=== PATIENT | male | born 1945 | race Caucasian/White ===

== ENCOUNTER 2016-08-24 10:54 | Observation (INO) | payer OTHER, MEDICARE ==
[2016-08-24] MEDS ORDERED: DIAZEPAM 5 MG TAB PO ONE (11:02)
[2016-08-24] MEDS ORDERED: NS 1,000 ML IV ONE (11:02)
[2016-08-24] MEDS ORDERED: BACITRACIN IRRIGATION/NS 50,000 UNITS/1,000 ML BTL IRR ONE (11:02)
[2016-08-24] MEDS ORDERED: diphenhydrAMINE 25 MG CAP PO ONE (11:02)
[2016-08-24] MEDS ORDERED: ceFAZolin 2 GM/DEXTROSE 100 ML IV ONE (11:02)
[2016-08-24] MEDS ORDERED: LIDOCAINE 1% 30 ML SDV ONE (11:19)
[2016-08-24] MEDS ORDERED: fentaNYL 100 MCG/2 ML INJ ONE ×2 (11:20→12:28)
[2016-08-24] MEDS ORDERED: IOPAMIDOL (ISOVUE-300) 50 ML VIAL IV ONE (11:20)
[2016-08-24] MEDS ORDERED: BUPIVACAINE 0.5% 30 ML SDV ONE (11:20)
[2016-08-24] MEDS ORDERED: MIDAZOLAM 2 MG/2 ML VIAL ONE ×2 (11:20→12:28)
[2016-08-24 11:34] LABS: % IMMATURE GRANULYOCYTES 0.4 % (0.0-1.1); ABSOLUTE IMMATURE GRANULOCYTES 0.03 10^3/uL (0.00-0.10); ADD DIFF? NO; ADD MORPH? NO; ADD SCAN? NO; ATYPICAL LYMPHOCYTE FLAG 20 (0-99); FRAGMENT RBC FLAG 0 (0-99); HEMATOCRIT 43.4 % (40.0-51.0); HEMOGLOBIN 14.4 g/dL (13.7-17.5); LEFT SHIFT FLG 0 (0-99); LIPEMIA HEMOLYSIS FLAG 80 (0-99); MEAN CELL HEMOGLOBIN CONCENTR. 33.2 g/dL (32.4-36.7); MEAN CELL VOLUME 87.5 fL (81.5-99.8); MEAN PLATELET VOLUME 11.3 fL (8.7-11.7); PLATELET CLUMPS FLAG 0 (0-99); PLATELET COUNT 194 10^3/uL (150-400); RED BLOOD CELL COUNT 4.96 10^6/uL (4.40-6.38); RED CELL DISTRIBUTION WIDTH 13.2 % (11.5-15.2)
[2016-08-24] MEDS ORDERED: EPINEPHrine 1 MG/10 ML SYR IVP ONE (11:36)
[2016-08-24] MEDS ORDERED: methylPREDNISolone SOD SUCC 125 MG/2 ML VIAL ONE (11:36)
[2016-08-24] MEDS ORDERED: FAMOTIDINE 20 MG/NACL/50 ML BAG IV ONE (11:37)
[2016-08-24 11:47] LABS: INR 1.1 (0.83-1.16); PROTIME(PATIENT) 14.1 SEC (12.0-15.0)
[2016-08-24 11:53] LABS: ANION GAP 12 mEq/L (8-16); CALCIUM 9.3 mg/dL (8.5-10.4); CARBON DIOXIDE 23 mEq/l (22-31); CHLORIDE 108 mEq/L (97-110); CREATININE 1.1 mg/dL (0.7-1.3); GLOMERULAR FILTRATION RATE > 60; GLUCOSE 96 mg/dL (70-100); POTASSIUM 4.1 mEq/L (3.5-5.2); SODIUM 143 mEq/L (134-144)
--- NOTE | 2016-08-24 16:47 | CPEKG ---
Heart Rate: 87 RR Interval: 690 P-R Interval: 184 QRSD Interval: 110 QT Interval: 384 QTC Interval: 462 P Adams: 232 QRS Adams: 122 T Wave Adams: 17 EKG Severity - ABNORMAL ECG - EKG Impression: PACED ATRIAL RHYTHM EKG Impression: LEFT POSTERIOR FASCICULAR BLOCK Electronically Signed By: James Herrmann 24-Aug-2016 20:15:31
[2016-08-24] MEDS ORDERED: NON-FORMULARY NEW DRUG (Doxycycline Monohydrate [Oracea] 40 MG) PO PRN (20:16)
[2016-08-24] MEDS ORDERED: NON-FORMULARY NEW DRUG (Oxycodone Hcl/Acetaminophen [Percocet 7.5-325 Mg Tablet] 1 EACH) PO PRN (20:16)
[2016-08-24] MEDS ORDERED: OXYCODONE/APAP 5/325 TAB PO PRN (20:21)
[2016-08-24] MEDS ORDERED: oxyCODONE IR 5 MG TAB PO PRN (20:21)
[2016-08-24] MEDS ORDERED: Doxycycline Monohydrate [Oracea] 40 MG PO PRN (20:32)
[2016-08-24] MEDS ORDERED: ATORVASTATIN CALCIUM 40 MG TAB PO SCH (21:00)
[2016-08-24] MEDS ORDERED: ASPIRIN EC 81 MG TAB PO SCH (21:00)
[2016-08-24] MEDS ORDERED: ZOLPIDEM TARTRATE 12.5 MG PO SCH (21:00)
[2016-08-24] MEDS: METOPROLOL TARTRATE 25 MG TAB PO SCH (22:16)
[2016-08-25 04:48] LABS: % IMMATURE GRANULYOCYTES 0.5 % (0.0-1.1); ABSOLUTE IMMATURE GRANULOCYTES 0.07 10^3/uL (0.00-0.10); ADD DIFF? NO; ADD MORPH? NO; ADD SCAN? NO; ATYPICAL LYMPHOCYTE FLAG 0 (0-99); FRAGMENT RBC FLAG 0 (0-99); HEMATOCRIT 40.7 % (40.0-51.0); LEFT SHIFT FLG 0 (0-99); LIPEMIA HEMOLYSIS FLAG 80 (0-99); MEAN CELL HEMOGLOBIN 28.6 pg (27.9-34.1); MEAN CELL HEMOGLOBIN CONCENTR. 31.9 g/dL (32.4-36.7); MEAN CELL VOLUME 89.5 fL (81.5-99.8); PLATELET CLUMPS FLAG 0 (0-99); PLATELET COUNT 174 10^3/uL (150-400); RED BLOOD CELL COUNT 4.55 10^6/uL (4.40-6.38); RED CELL DISTRIBUTION WIDTH 13.1 % (11.5-15.2)
[2016-08-25 05:10] LABS: ANION GAP 12 mEq/L (8-16); CALCIUM 8.8 mg/dL (8.5-10.4); CARBON DIOXIDE 23 mEq/l (22-31); CHLORIDE 108 mEq/L (97-110); CREATININE 1.1 mg/dL (0.7-1.3); GLOMERULAR FILTRATION RATE > 60; GLUCOSE 125 mg/dL (70-100); POTASSIUM 4.5 mEq/L (3.5-5.2); SODIUM 143 mEq/L (134-144)
--- NOTE | 2016-08-25 08:35 | DX ---
PA and Lateral Chest August 25, 2016 Indication: Post pacer placement pending discharge. Comparison: February 16, 2014. Findings: Mediastinal clips and prosthetic valve are unchanged. There is a new dual-lead pacer from a left subclavian approach. Lungs are clear. Heart size is normal. No evidence of pneumothorax. Impression: 1. New pacer in adequate position. 2. Mediastinal clips and mitral valve unchanged.
[2016-08-25] MEDS ORDERED: MULTIVITAMINS 1 EACH TAB PO SCH (09:00)
--- NOTE | 2016-08-25 09:09 | CPEKG ---
Heart Rate: 72 RR Interval: 833 P-R Interval: 184 QRSD Interval: 108 QTC Interval: 0 P Sarah Ann: 0 QRS Sarah Ann: 82 EKG Severity - ABNORMAL ECG - EKG Impression: ATRIAL-PACED COMPLEXES EKG Impression: LEFT ATRIAL ABNORMALITY EKG Impression: ANTERIOR INFARCT, AGE INDETERMINATE Electronically Signed By: James Herrmann 25-Aug-2016 10:18:57
[2016-08-25 10:17] VITALS: BP 102/63; PULSE 88; RESP 15; TEMP 97.7; O2SAT 93
[2016-08-25] MEDS: METOPROLOL TARTRATE 25 MG TAB PO SCH (10:18)
--- NOTE | 2016-08-25 10:32 | EPPROC ---
Electrophysiology Procedure Note: PROCEDURE PERFORMED: * Implantation of an A/V Pacemaker * * Fluoroscopy INDICATION: This is a 71 yr old with significant sinus bradycardia resulting in significant fatigue and episodes of syncope. hence it was decided to implant a dual chamber pacemaker. PROCEDURE NOTE: Patient presented to the cardiac catheterization laboratory in a fasting, post absorptive state. Cardiac orthodontic laboratory technician nurse administered moderate sedation. The left infraclavicular area was prepped and draped in the usual sterile fashion. Lidocaine plus bupivacaine was used for local anesthesia. Using a combination of blunt and sharp dissection and electrocautery, the dissection was carried down to the prepectoral fascia. All bleeding was controlled with electrocautery. Fluoroscopy was utilized during the entire procedure for venous access and placement of the leads. Using the usual technique, left cephalic vein was accessed and a glidewire was placed. Through this initially a 9F and later a 7F sheath was passed. Placement of the guidewires into the venous system was confirmed by low- pressure blood return and also by visualizing the guidewires advancing into the inferior vena cava. A purse string suture was applied around the guidewires. An active fixation ventricular lead was advanced into the right ventricular apex and screwed in place. An active fixation atrial lead was advanced into the right atrial appendage and screwed in place. The peel away sheaths were removed. Pacing thresholds, sensing parameters and lead impedances were measured. There was no diaphragmatic stimulation at maximum output. The leads were sutured to the prepectoral fascia with 3 nonabsorbable sutures each. The pocket was created and it was flushed using antibiotic solution. It was inspected for any bleeding. The leads were attached to the pacemaker securely. The pacemaker was inserted into the pocket and secured in place with a nonabsorbable suture. Fluoroscopy was performed in BUTLER and NATALIYA planes to verify right-sided placement of the leads. Also fluoroscopy of the pacemaker pocket was performed. The pacemaker pocket was closed in 3 layers with absorbable vicryl sutures. Steristrips were placed. Appropriate dressing was applied. The patient left the cardiac catheterization laboratory in stable condition. 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
--- NOTE | 2016-08-25 17:53 | GDS ---
[f rep st] DISCHARGE SUMMARY This is a 71-year-old male with a past history of coronary artery disease status post CABG, status po st MVR, back surgery, neuropathy and related changes, who had presented to the clinic with significan t amount of fatigue, lightheadedness, and 2 episodes of syncope over the past 6 months. Heart rates were noted to be in the high 30s and low 40s. In view of this, it was decided to implant a pacemaker . PAST MEDICAL HISTORY: Coronary artery disease status post CABG significant MR status post surgery, s yncope, neuropathy, and back pain. Other past medical history detailed in the chart. PAST SURGERY HISTORY: CABG, hip surgery, and valve replacement. MEDICATIONS: List reviewed. ALLERGIES: Cardura, contrast. SOCIAL HISTORY: Lives with his . Former smoker. PHYSICAL EXAM: VITAL SIGNS: Blood pressure of 104/68, pulse of 45, respiratory rate 16. HEENT: Pu pils equal and reacting to light, accommodating. CHEST: Good air entry bilaterally equal. No rales , rhonchi, or rub. HEART: S1, S2 regular. No S3. No murmurs. ABDOMEN: Soft, nontender. No guar ding or rigidity. Bowel sounds present. EXTREMITIES: No pedal edema. HOSPITAL ADMISSION: The patient was admitted to the hospital, and a dual-chamber pacemaker was impla nted using the cephalic route. The patient tolerated the procedure well. He stayed overnight. The next morning, chest x-ray showed good lead position. Device interrogation was performed, which showe d good numbers. No hematoma was noted. The patient was feeling well. At this point in time, the pa tient was in stable condition, and then it was decided to discharge to home. DISCHARGE MEDICATIONS: Ambien as needed, doxycycline as needed, aspirin 81 mg at night, Lipitor 80 m g q.h.s., gabapentin 1200 mg daily, metoprolol 25 mg p.o. b.i.d., oxycodone as needed, multivitamin, diazepam, buprenorphine patch. Pacemaker instructions were given. Followup appointment made with the [facility] as well as Dr. Kathia bhatia. Thank you for letting me participate in the patient's care. Feel free to call me for questions you m ay have. /[id number]/MODL
[2016-08-25] MEDS ORDERED: GABAPENTIN 300 MG CAP PO SCH (18:00)
[2016-08-26] MEDS ORDERED: Buprenorphine [Butrans 20 Mcg/Hr] 1 EACH TD SCH (12:00)
[2016-08-26] MEDS ORDERED: NON-FORMULARY NEW DRUG (Buprenorphine [Butrans 20 Mcg/Hr] 1 EACH) TD SCH (12:00)
== END 2016-08-25 11:48 | disposition home or self-care (01) ==
LOC: FCATH 10:54 → F2W 13:21
PROVIDERS: ADMIT Internal Medicine Cardiovascular Disease; ATTEND Internal Medicine Cardiovascular Disease
PROC: 02H63JZ Insertion of Pacemaker Lead into Right Atrium, Percutaneous Approach (ICD-10-PCS; principal; 2016-08-24)
PROC: 0JH606Z Insertion of Pacemaker, Dual Chamber into Chest Subcutaneous Tissue and Fascia, Open Approach (ICD-10-PCS; principal; 2016-08-24)
PROC: 02HK3JZ Insertion of Pacemaker Lead into Right Ventricle, Percutaneous Approach (ICD-10-PCS; principal; 2016-08-24)
DX: R00.1 Bradycardia, unspecified (principal); R55 Syncope and collapse; I25.10 Atherosclerotic heart disease of native coronary artery without angina pectoris; Z95.1 Presence of aortocoronary bypass graft; Z95.2 Presence of prosthetic heart valve
CPT/HCPCS: 33208; 71020; 93005; C1769; C1785; C1898; J0690; J2250; J3010; Q9967

== ENCOUNTER → 2017-01-31 | Outpatient (CLI) | payer OTHER, MEDICARE | LOC: BHFA 09:30 | PROVIDERS: ATTEND Internal Medicine Cardiovascular Disease | DX: R00.1 Bradycardia, unspecified (principal); Z95.0 Presence of cardiac pacemaker ==

== ENCOUNTER → 2017-02-01 | Outpatient (CLI) | payer OTHER, MEDICARE | LOC: FIMAGING 08:31 | PROVIDERS: ATTEND Physician Assistant | DX: M25.552 Pain in left hip (principal); M25.852 Other specified joint disorders, left hip; M76.02 Gluteal tendinitis, left hip; M76.892 Other specified enthesopathies of left lower limb, excluding foot ==

== ENCOUNTER → 2017-02-02 | Outpatient (CLI) | payer OTHER, MEDICARE ==
[~2017-02-02] MED LIST: DEPO METHYLPREDNISOLONE 40 MG/ML SDV ONE; IOPAMIDOL (ISOVUE 370) 100 ML BTL IV ONE; LIDOCAINE 1% 300 MG/30 ML SDV ONE; ROPIVACAINE HCL 150 MG/30 ML INJ ONE
== END ==
LOC: FIMAGING 13:26
PROVIDERS: ATTEND Orthopaedic Surgery
PROC: 3E0U3BZ Introduction of Anesthetic Agent into Joints, Percutaneous Approach (ICD-10-PCS; principal; 2017-02-02)
PROC: 3E0U33Z Introduction of Anti-inflammatory into Joints, Percutaneous Approach (ICD-10-PCS; principal; 2017-02-02)
DX: M25.551 Pain in right hip (principal); M25.552 Pain in left hip
CPT/HCPCS: 20610; 77002; J1030; J2795; Q9967

== ENCOUNTER 2017-03-29 05:26 | Day surgery (SDC) | payer OTHER, MEDICARE ==
[2017-03-29] MEDS ORDERED: ceFAZolin 2 GM/DEXTROSE 100 ML IV ONE (06:05)
[2017-03-29] MEDS ORDERED: LR 1,000 ML IV ONE (06:18)
--- NOTE | 2017-03-29 07:04 | PDHPUP ---
History & Physical Update H&P update statement: This history and physical update is based on an assessment of the patient which was completed after admission or registration (within 24 hours), but prior to the surgery/procedure. H&P update: H&P reviewed & patient examined, no change in patient's condition since H&P completed
[2017-03-29] MEDS ORDERED: BUPIVACAINE 0.5% 30 ML SDV ONE (07:09)
[2017-03-29] MEDS ORDERED: MIDAZOLAM 2 MG/2 ML VIAL IVP ONE (08:07)
--- NOTE | 2017-03-29 08:11 | PDANEPAE ---
ANE History of Present Illness Lap inguinal hernia repair ANE Past Medical History - Cardiovascular History Hx Hypertension: No Hx Arrhythmias: No Hx Coronary Artery / Peripheral Vascular Disease: Yes Hx CHF / Valvular Disease: Yes Cardiovascular History Comment: . CABG X . MITRAL VALVE REP. PAIN OVER R CHEST- FOR RIB PLATE REM. HIGH CHOL - Pulmonary History Hx COPD: No Hx Asthma/Reactive Airway Disease: No Hx Recent Upper Respiratory Infection: No Hx Oxygen in Use at Home: No Hx Sleep Apnea: No Pulmonary History Comment: DENIES SOB W STAIRS. PERSISTANT PNEUMOTHORAX HOSP X 1 MONTH W CABG SURG - Neurologic History Hx Cerebrovascular Accident: No Hx Seizures: No Hx Dementia: No Neurologic History Comment: NERVE PAIN- R CHEST - Endocrine History Hx Diabetes: No Hypothyroid: No Hyperthyroid: No - Renal History Hx Renal Disorders: Yes Renal History Comment: BPH - Liver History Hx Hepatic Disorders: No - Neurological & Psychiatric Hx Hx Neurological and Psychiatric Disorders: No - Cancer History Hx Cancer: No - Congenital Disorder History Hx Congenital Disorders: No - GI History GERD: mild Hx Gastrointestinal Disorders: No - Other Health History Other Health History: ROSEACIA - Chronic Pain History Chronic Pain: Yes (CHEST) - Surgical History Prior Surgeries: CABG X. MINI MITRAL VALVE REPAIR W RIB PLATE '. THORACOTOMY. STERNAL WIRES REM. R CHEST WAL SCAR EXC. R HIP REPAIR. TONSILS. FX L ARM REP ULNA AND RADIUS. R ANKLE ANE Review of Systems - Exercise capacity METS (RN): 1 METS - Pacemaker Pacemaker Type: Bi-Ventricular Pacemaker Lead Relay Tester: Biotronik Pacemaker Model: [id number] Pacemaker Mode: DDD Date Pacemaker Last Checked: february/2017 ANE Patient History - Allergies Allergies/Adverse Reactions: caffeine Allergy (Intermediate, Verified 11/15/11 14:54) Rash iodine Allergy (Intermediate, Verified 01/29/14 11:51) Flushing CITRUS JUICE Allergy (Intermediate, Uncoded 11/15/11 14:54) Rash CL&ME ISOTHIAZOLINONE Allergy (Intermediate, Uncoded 11/15/11 14:54) BLISTERS/RASH CATS Allergy (Mild, Uncoded 02/02/14 11:46) ITCHY EYES - Home Medications Home Medications: Aspirin EC [Aspirin EC 81 mg (*)] 81 mg PO HS 01/29/14 [Last Taken 03/28/17] Doxycycline Monohydrate [Oracea] 40 mg PO HS PRN 01/29/14 [Last Taken 03/28/17] Multivitamins [Multivitamin (*)] 1 each PO DAILY 01/29/14 [Last Taken 02/09/14] ZOLPIDEM TARTRATE [Ambien CR 12.5 mg] 12.5 mg PO HS 01/29/14 [Last Taken ] Atorvastatin Calcium [Lipitor 40 mg (*)] 80 mg PO HS 08/24/16 [Last Taken ] Buprenorphine [Butrans 20 mcg/hr] 1 each TD SA@12 08/24/16 [Last Taken 03/28/17] Gabapentin [Neurontin 300 MG (*)] 1,200 mg PO DAILY@18 08/24/16 [Last Taken 07/06] - NPO status NPO Since - Liquids (Date): 03/28/17 NPO Since - Liquids (Time): 10:30 NPO Since - Solids (Date): 03/28/17 NPO Since - Solids (Time): 19:00 - Smoking Hx Smoking Status: Former smoker Marijuana use: Yes - Family Anes Hx Family Anes Hx: none Family Hx Anesthesia Complications: NONE ANE Labs/Vital Signs - Vital Signs Blood Pressure: 131/73 Heart Rate: 59 Respiratory Rate: 12 O2 Sat (%): 94 Height: 182.88 cm Weight: 83.915 kg ANE Physical Exam - Airway Neck exam: decreased ROM Mallampati Score: Class 2 Mouth exam: normal dental/mouth exam - Pulmonary Pulmonary: no respiratory distress, no rales or rhonchi - Cardiovascular Cardiovascular: regular rate and rhythym, no murmur, rub, or gallop - ASA Status ASA Status: III ANE Anesthesia Plan Anesthesia Plan: general endotracheal anesthesia (Magnet for pacemaker)
[2017-03-29] MEDS ORDERED: fentaNYL 100 MCG/2 ML INJ ONE ×3 (08:16)
[2017-03-29] MEDS ORDERED: PROPOFOL 200 MG/20 ML VIAL ONE (08:16)
[2017-03-29] MEDS ORDERED: PROPOFOL/EMULSION 500 MG/50 ML BOTTLE IV ONE (08:16)
[2017-03-29] MEDS ORDERED: NALOXONE HCL 0.4 MG/ML INJ IVP PRN (09:17)
[2017-03-29] MEDS ORDERED: ONDANSETRON 4 MG/2 ML VIAL IVP PRN (09:17)
[2017-03-29] MEDS ORDERED: HYDROmorphONE/DILAUDID 1 MG/ML SYR IVP PRN (09:17)
[2017-03-29] MEDS ORDERED: fentaNYL 100 MCG/2 ML INJ IVP PRN (09:17)
[2017-03-29] MEDS ORDERED: METOCLOPRAMIDE 10 MG/2 ML VIAL IVP PRN (09:17)
[2017-03-29] MEDS ORDERED: ONDANSETRON 4 MG/2 ML VIAL ONE (09:22)
[2017-03-29] MEDS ORDERED: KETOROLAC 30 MG/1 ML SDV ONE (09:22)
[2017-03-29] MEDS ORDERED: DEXAMETHASONE 4 MG/ML VIAL ONE (09:22)
[2017-03-29] MEDS ORDERED: SUGAMMADEX SODIUM 200 MG/2 ML VIAL IVP ONE (09:22)
[2017-03-29] MEDS ORDERED: ROCURONIUM 50 MG/5 ML VIAL ONE (09:22)
[2017-03-29] MEDS ORDERED: PHENYLEPHRINE HCL 100 MCG/ML SYR ONE (09:22)
[2017-03-29 10:01] VITALS: PULSE 60
--- NOTE | 2017-03-29 10:05 | POSTOPPROG ---
Post Op Note Date of Operation: 03/29/17 Surgeon: Edmar Guerra Toxics Program Officer: Ana Lilia Azevedo Anesthesiologist: Toño Anesthesia: GET(General Endotracheal) Pre-op Diagnosis: Bilateral inguinal hernia Post-op Diagnosis: BIH, umbilical hernia Procedure: laproscopic BIH repair with mesh, umbilical hernia repair Findings: right indirect hernia, small left hernia, small umbilical hernia Inf/Abcess present in the surg proc area at time of surgery?: No Depth: Organ Space EBL: Minimal
[2017-03-29 12:35] VITALS: BP 95/56; RESP 15; TEMP 97.7; O2SAT 95
--- NOTE | 2017-03-29 13:09 | POSTANESTH ---
Post Anesthetic Evaluation Cardiovascular Status: Normal, Stable Respiratory Status: Normal, Stable Level of Consciousness/Mental Status: Can Participate in Eval Pain Control: Adequate, Prn Tx Ordered Nausea/Vomiting Control: Adequate, Prn Tx Ordered Complications Possibly Related to Anesthesia: None Noted
== END 2017-03-29 12:35 | disposition home or self-care (01) ==
LOC: FSGY 05:26
PROVIDERS: ATTEND Surgery
PROC: 0YUA4JZ Supplement Bilateral Inguinal Region with Synthetic Substitute, Percutaneous Endoscopic Approach (ICD-10-PCS; principal; 2017-03-29 08:15)
PROC: 0WQF0ZZ Repair Abdominal Wall, Open Approach (ICD-10-PCS; principal; 2017-03-29 08:15)
DX: K40.20 Bilateral inguinal hernia, without obstruction or gangrene, not specified as recurrent (principal); K42.9 Umbilical hernia without obstruction or gangrene; I25.10 Atherosclerotic heart disease of native coronary artery without angina pectoris; I25.2 Old myocardial infarction; E78.00 Pure hypercholesterolemia, unspecified; Z95.1 Presence of aortocoronary bypass graft; Z95.0 Presence of cardiac pacemaker
CPT/HCPCS: 49580; 49650; C1727; C1781; J0690; J1100; J1885; J2250; J2370; J2405; J2704; J3010

== ENCOUNTER → 2017-04-25 | Outpatient (CLI) | payer OTHER, MEDICARE | LOC: EDSTATUS 11:16 → FIMAGING 12:23 → FLAB 12:23 | PROVIDERS: ATTEND Internal Medicine Cardiovascular Disease | DX: R06.02 Shortness of breath (principal); Z95.0 Presence of cardiac pacemaker ==

== ENCOUNTER → 2017-05-24 | Outpatient (CLI) | payer OTHER, MEDICARE | LOC: FIMAGING 08:55 | DX: M51.24 Other intervertebral disc displacement, thoracic region (principal); M46.94 Unspecified inflammatory spondylopathy, thoracic region ==

== ENCOUNTER → 2017-06-19 | Outpatient (CLI) | payer OTHER, MEDICARE | LOC: FIMAGING 08:54 | PROVIDERS: ATTEND Family Medicine | DX: R26.89 Other abnormalities of gait and mobility (principal); R53.1 Weakness; I25.10 Atherosclerotic heart disease of native coronary artery without angina pectoris; Z95.0 Presence of cardiac pacemaker ==

== ENCOUNTER 2018-02-21 09:33 | Day surgery (SDC) | payer OTHER, MEDICARE ==
[2018-02-21] MEDS ORDERED: NS 500 ML IV ONE (09:34)
[2018-02-21] MEDS ORDERED: fentaNYL 100 MCG/2 ML INJ IVP ONE (09:34)
[2018-02-21] MEDS ORDERED: ATROPINE SULFATE 1 MG/10 ML SYR IVP ONE (09:34)
[2018-02-21] MEDS ORDERED: MIDAZOLAM 2 MG/2 ML VIAL IVP ONE (09:34)
[2018-02-21] MEDS ORDERED: BENZOCAINE UNIT DOSE SPRAY HURRICAINE MM ONE (09:34)
--- NOTE | 2018-02-21 09:59 | CPEKG ---
Heart Rate: 78 RR Interval: 769 QRSD Interval: 112 QT Interval: 404 QTC Interval: 461 QRS Flowood: 183 T Wave Flowood: -36 EKG Severity - ABNORMAL ECG - EKG Impression: A-FLUTTER W/ PREDOM 3:1 AV BLOCK, A-RATE 234 EKG Impression: NONSPECIFIC INTRAVENTRICULAR CONDUCTION DELAY EKG Impression: ANTERIOR INFARCT, OLD EKG Impression: ST DEPRESSION, CONSIDER ISCHEMIA, INF LEADS Electronically Signed By: Mikie Currie 28-Feb-2018 16:25:48
[2018-02-21 10:32] LABS: INR 2.26 (0.83-1.16)
[2018-02-21] MEDS ORDERED: PROPOFOL 200 MG/20 ML VIAL ONE (11:01)
[2018-02-21] MEDS ORDERED: LIDOCAINE 1% 5 ML SDV ONE (11:03)
--- NOTE | 2018-02-21 11:34 | CPEKG ---
Heart Rate: 53 RR Interval: 1132 P-R Interval: 192 QRSD Interval: 116 QT Interval: 452 QTC Interval: 425 P Brayton: 56 QRS Brayton: 141 T Wave Brayton: 2 EKG Severity - ABNORMAL ECG - EKG Impression: SINUS RHYTHM EKG Impression: LEFT POSTERIOR FASCICULAR BLOCK EKG Impression: ANTERIOR INFARCT, OLD Electronically Signed By: Mikie Currie 28-Feb-2018 16:25:15
[2018-02-21] MEDS ORDERED: NALOXONE HCL 0.4 MG/ML INJ IVP PRN (16:07)
--- NOTE | 2018-02-21 16:09 | PDANEPAE ---
ANE History of Present Illness 72 year old male with A-fib for cardioversion. ANE Past Medical History - Cardiovascular History Hx Hypertension: No Hx Arrhythmias: No Hx Coronary Artery / Peripheral Vascular Disease: Yes Hx CHF / Valvular Disease: Yes Cardiovascular History Comment: ME . CABG X . MITRAL VALVE REP. PAIN OVER R CHEST- FOR RIB PLATE REM. HIGH CHOL - Pulmonary History Hx COPD: No Hx Asthma/Reactive Airway Disease: No Hx Recent Upper Respiratory Infection: No Hx Oxygen in Use at Home: No Hx Sleep Apnea: No Pulmonary History Comment: DENIES SOB W STAIRS. PERSISTANT PNEUMOTHORAX HOSP X 1 MONTH W CABG SURG - Neurologic History Hx Cerebrovascular Accident: No Hx Seizures: No Hx Dementia: No Neurologic History Comment: NERVE PAIN- R CHEST - Endocrine History Hx Diabetes: No - Renal History Hx Renal Disorders: Yes Renal History Comment: BPH - Liver History Hx Hepatic Disorders: No - Neurological & Psychiatric Hx Hx Neurological and Psychiatric Disorders: No - Cancer History Hx Cancer: No - Congenital Disorder History Hx Congenital Disorders: No - GI History Hx Gastrointestinal Disorders: No - Other Health History Other Health History: ROSEACIA - Chronic Pain History Chronic Pain: Yes (CHEST) - Surgical History Prior Surgeries: CABG X. MINI MITRAL VALVE REPAIR W RIB PLATE . THORACOTOMY. STERNAL WIRES REM. R CHEST WAL SCAR EXC. R HIP REPAIR. TONSILS. FX L ARM REP ULNA AND RADIUS. R ANKLE ANE Review of Systems Review of systems is: negative Review of Systems: - Pacemaker Date Pacemaker Last Checked: february/2017 ANE Patient History - Allergies Allergies/Adverse Reactions: caffeine Allergy (Intermediate, Verified 11/15/11 14:54) Rash iodine Allergy (Intermediate, Verified 01/29/14 11:51) Flushing CITRUS JUICE Allergy (Intermediate, Uncoded 11/15/11 14:54) Rash CL&ME ISOTHIAZOLINONE Allergy (Intermediate, Uncoded 11/15/11 14:54) BLISTERS/RASH CATS Allergy (Mild, Uncoded 02/02/14 11:46) ITCHY EYES - Home Medications Home Medications: Doxycycline Monohydrate [Oracea] 40 mg PO HS PRN 01/29/14 [Last Taken 02/20/18 23:00] Atorvastatin Calcium [Lipitor 40 mg (*)] 80 mg PO HS 08/24/16 [Last Taken 23:00] Buprenorphine [Butrans 20 mcg/hr] 1 each TD SA@12 08/24/16 [Last Taken 02/18/18 19:00] Gabapentin [Neurontin 300 MG (*)] 1,200 mg PO DAILY@18 08/24/16 [Last Taken 07/06] Digoxin [Lanoxin 0.125 mg] 0.125 mg PO DAILY 02/21/18 [Last Taken 02/20/18 23:00 ] Escitalopram Oxalate [Lexapro 10 MG] 02/21/18 [Last Taken 02/21/18 07:00] Gralise 02/21/18 [Last Taken 02/20/18 23:00] Levothyroxine 02/21/18 [Last Taken 02/20/18 07:00] Warfarin Sodium 02/21/18 [Last Taken 02/20/18 23:00] - Smoking Hx Smoking Status: Former smoker - Family Anes Hx Family Hx Anesthesia Complications: NONE ANE Labs/Vital Signs - Labs Result Diagrams: 02/21/18 10:02 - Vital Signs Height: 180.34 cm Weight: 83.007 kg ANE Physical Exam - Airway Neck exam: FROM Mallampati Score: Class 2 Mouth exam: normal dental/mouth exam - Pulmonary Pulmonary: no respiratory distress - Cardiovascular Cardiovascular: irregularly irregular - ASA Status ASA Status: III ANE Anesthesia Plan Anesthesia Plan: MAC
--- NOTE | 2018-02-22 09:04 | PDCARD ---
Cardioversion Procedure Procedure: electrical cardioversion Indications: atrial fibrillation Consent: signed and in chart Anticoagulation: warfarin Procedural Details: Pads were placed in anterior-posterior position. 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
== END 2018-02-21 12:42 | disposition home or self-care (01) ==
LOC: FCATH 09:33
PROVIDERS: ATTEND Internal Medicine Cardiovascular Disease
PROC: 5A2204Z Restoration of Cardiac Rhythm, Single (ICD-10-PCS; principal; 2018-02-21)
DX: I48.91 Unspecified atrial fibrillation (principal); I49.5 Sick sinus syndrome; R94.39 Abnormal result of other cardiovascular function study; I25.10 Atherosclerotic heart disease of native coronary artery without angina pectoris; I38 Endocarditis, valve unspecified; M25.551 Pain in right hip; M25.552 Pain in left hip; N40.1 Benign prostatic hyperplasia with lower urinary tract symptoms; E78.5 Hyperlipidemia, unspecified; G47.00 Insomnia, unspecified; Z95.0 Presence of cardiac pacemaker; Z95.1 Presence of aortocoronary bypass graft; I25.2 Old myocardial infarction; Z87.891 Personal history of nicotine dependence; Z79.82 Long term (current) use of aspirin; Z79.01 Long term (current) use of anticoagulants
CPT/HCPCS: J2250; J2704

== ENCOUNTER → 2018-03-11 | Outpatient (CLI) | payer OTHER, MEDICARE | LOC: BHFA 08:45 | PROVIDERS: ATTEND Internal Medicine Cardiovascular Disease | DX: I48.91 Unspecified atrial fibrillation (principal) | CPT/HCPCS: G0463 ==

== ENCOUNTER → 2018-03-14 | Outpatient (CLI) | payer OTHER, MEDICARE | LOC: BHFA 11:15 | PROVIDERS: ATTEND Internal Medicine Cardiovascular Disease | DX: I48.92 Unspecified atrial flutter (principal); I25.10 Atherosclerotic heart disease of native coronary artery without angina pectoris; Z95.0 Presence of cardiac pacemaker ==

== ENCOUNTER → 2018-05-07 | Outpatient (CLI) | payer OTHER, MEDICARE | LOC: BHFA 12:15 | PROVIDERS: ATTEND Internal Medicine Cardiovascular Disease | DX: Z86.79 Personal history of other diseases of the circulatory system (principal); Z98.890 Other specified postprocedural states ==

== ENCOUNTER → 2019-01-30 | Outpatient (CLI) | payer OTHER, MEDICARE | LOC: FIMAGING 11:37 ==